=== PATIENT | male | born 1940 | race Caucasian/White ===

== ENCOUNTER 2024-01-26 12:42 | Inpatient (IN) | payer OTHER, MEDICARE ==
[~2024-01-26] VITALS: Ht 188 cm; Wt 77.3 kg
[2024-01-26] MEDS ORDERED: RA M500C PO (13:07)
[2024-01-26] MEDS ORDERED: LOVA20TA2 PO (13:07)
[2024-01-26] MEDS ORDERED: REDCAP4 PO (13:07)
[2024-01-26] MEDS ORDERED: OMEG12004 PO (13:07)
[2024-01-26] MEDS ORDERED: OCUVCAP PO (13:07)
[2024-01-26] MEDS ORDERED: OSTE1TAB2 PO (13:07)
[2024-01-26] MEDS ORDERED: HYDR12.55 PO (13:07)
[2024-01-26] MEDS ORDERED: LISI10TA22 PO (13:07)
[2024-01-26] MEDS ORDERED: CLOP75TA2 PO (13:07)
[2024-01-26] MEDS ORDERED: ISOVUE-370 76% 100ML VIAL As Ordered ONE (13:43)
[2024-01-26 14:02] LABS: BASO # 0.1 10^3/uL (0.0-0.2); BASO % 0.8 % (0.0-1.0); EOS % 0.1 % (0.0-3.0); HEMATOCRIT 43.8 % (42.0-52.0); LYMPH # 0.8 10^3/uL (1.5-5.0); LYMPH % 9.8 % (24.0-44.0); MEAN CORPUSCULAR HEMOGLOBIN 32.7 pg (27.0-33.0); MEAN CORPUSCULAR HGB CONC 34.2 g/dl (32.0-36.5); MEAN CORPUSCULAR VOLUME 95.4 fl (80.0-96.0); MONO # 0.5 10^3/uL (0.0-0.8); MONO % 6.5 % (2.0-8.0); NEUTROPHILS # 6.5 10^3/uL (1.5-8.5); NEUTROPHILS % 82.5 % (36.0-66.0); PLATELET COUNT, AUTOMATED 323 10^3/uL (150-450); RED BLOOD COUNT 4.59 10^6/uL (4.30-6.10); WHITE BLOOD COUNT 7.8 10^3/uL (4.0-10.0)
[2024-01-26] MEDS: LABETALOL 100MG/20ML VIAL IV STA (14:14)
[2024-01-26 14:25] LABS: INR 0.96; PARTIAL THROMBOPLASTIN TIME 27.9 SECONDS (24.8-34.2); PROTHROMBIN TIME 12.5 SECONDS (12.5-14.5)
[2024-01-26 14:30] LABS: ALBUMIN 3.9 G/DL (3.2-5.2); ALKALINE PHOSPHATASE 72 U/L (46-116); ALT/SGPT 24 U/L (7.0-40); AST/SGOT 27 U/L (<34); BILIRUBIN,DIRECT 0.2 MG/DL (<0.4); BILIRUBIN,TOTAL 0.6 MG/DL (0.3-1.2); BLOOD UREA NITROGEN 12 MG/DL (9-23); CALCIUM LEVEL 9.4 MG/DL (8.3-10.6); CARBON DIOXIDE LEVEL 26 MMOL/L (20-31); CHLORIDE LEVEL 99 MMOL/L (98-107); CK-MB VALUE MASS 1.9 NG/ML (<3.6); CREATININE FOR GFR 0.46 MG/DL (0.70-1.30); GLOMERULAR FILTRATION RATE > 60.0 (>35); GLUCOSE, FASTING 154 MG/DL (74-106); POTASSIUM SERUM 3.7 MMOL/L (3.5-5.1); SODIUM LEVEL 134 MMOL/L (136-145); TOTAL PROTEIN 7.4 G/DL (5.7-8.2)
[2024-01-26 14:32] LABS: FREE T4 1.15 NG/DL (0.89-1.76)
[2024-01-26 14:33] LABS: THYROID STIMULATING HORMONE 1.584 uIU/ML (0.55-4.78)
[2024-01-26 14:51] LABS: CPK CREATINE PHOSPHOKINASE 122 U/L (46-171); MB/CK RELATIVE INDEX 1.55 (< OR =4)
[2024-01-26] MEDS: ASPIRIN 81MG CHEW TABLET PO ONE (15:52)
[2024-01-26] MEDS ORDERED: ACETAMINOPHEN TAB 650MG DOSE (2X325MG) PO PRN (17:55)
[2024-01-26] MEDS: ATORVASTATIN 20 MG TAB PO ONE (18:25)
[2024-01-26] MEDS: CLOPIDOGREL 75 MG TAB PO ONE (18:25)
[2024-01-26] MEDS: LABETALOL 100MG/20ML VIAL IV PRN (18:40)
[2024-01-26] MEDS ORDERED: VITA-10 PO (19:12)
[2024-01-26] MEDS ORDERED: VITA100065 PO (19:12)
[2024-01-26] MEDS ORDERED: D 101000 PO (19:12)
[2024-01-26] MEDS ORDERED: HOME MED LIST COMPLETE! XX SCH (19:15)
[2024-01-26] MEDS: DOCUSATE SODIUM 100MG CAPSULE PO SCH (21:29)
[2024-01-26 22:23] VITALS: BP 210/92; TEMP 97.1; O2SAT 97
[2024-01-26 23:00] VITALS: O2SAT 96
[2024-01-26 23:44] VITALS: BP 222/98; TEMP 97.4; O2SAT 98
[2024-01-26] MEDS: PANTOPRAZOLE 40MG VIAL IV SCH (23:47)
[2024-01-26] MEDS: SUCRALFATE 1 GM TAB PO SCH (23:47)
[2024-01-27] VITALS (10 sets, daily range): BP systolic 142–222; BP diastolic 58–98; TEMP 97.4–97.7; O2SAT 94–99
[2024-01-27 00:15] LABS: HEMATOCRIT 45.6 % (42.0-52.0); HEMOGLOBIN 15.8 g/dl (13.5-17.5)
[2024-01-27] MEDS: hydrALAZINE 20MG/ML 1ML VIAL IV ONE (00:23)
[2024-01-27] MEDS: METOCLOPRAMIDE INJ 10MG/2ML VIAL IV ONE (04:18)
[2024-01-27 05:34] LABS: HEMATOCRIT 45.8 % (42.0-52.0); HEMOGLOBIN 15.8 g/dl (13.5-17.5)
[2024-01-27 05:59] LABS: ALKALINE PHOSPHATASE 76 U/L (46-116); ALT/SGPT 23 U/L (7.0-40); AST/SGOT 25 U/L (<34); BILIRUBIN,TOTAL 0.7 MG/DL (0.3-1.2); BLOOD UREA NITROGEN 13 MG/DL (9-23); CALCIUM LEVEL 9.7 MG/DL (8.3-10.6); CARBON DIOXIDE LEVEL 26 MMOL/L (20-31); CHLORIDE LEVEL 97 MMOL/L (98-107); CREATININE FOR GFR 0.43 MG/DL (0.70-1.30); GLOMERULAR FILTRATION RATE > 60.0 (>35); GLUCOSE, FASTING 122 MG/DL (74-106); MAGNESIUM LEVEL 2.2 MG/DL (1.8-2.4); POTASSIUM SERUM 3.6 MMOL/L (3.5-5.1); SODIUM LEVEL 133 MMOL/L (136-145); TOTAL PROTEIN 7.7 G/DL (5.7-8.2)
[2024-01-27] MEDS ORDERED: HEPARIN SOD (PORCINE) 5000UNITS/ML 1ML VIAL/SYRINGE IV PRN (16:50)
[2024-01-27] MEDS: HEPARIN DRIP 25,000 UNITS in IV 1 EA IV SCH (18:06)
== END 2024-01-27 20:13 | disposition short-term general hospital (02) | DRG 300 ==
LOC: M ED 12:42 → M ED INP 17:55 → M PCU 22:23
PROVIDERS: ADMIT Hospitalist; ATTEND Hospitalist
DX: I70.202 Unspecified atherosclerosis of native arteries of extremities, left leg (principal); I45.2 Bifascicular block; Z66 Do not resuscitate; R47.1 Dysarthria and anarthria; H53.2 Diplopia; I65.21 Occlusion and stenosis of right carotid artery; I16.0 Hypertensive urgency; I10 Essential (primary) hypertension; E78.5 Hyperlipidemia, unspecified; Z79.82 Long term (current) use of aspirin; Z79.899 Other long term (current) drug therapy; Z86.73 Personal history of transient ischemic attack (TIA), and cerebral infarction without residual deficits

== ENCOUNTER → 2024-03-11 | Outpatient (REF) | payer MEDICARE, OTHER ==
[~2024-03-11] MED LIST: CLOP75TA2 PO; D 101000 PO; HYDR12.55 PO; LISI10TA22 PO; LOVA20TA2 PO; OCUVCAP PO; OMEG12004 PO; OSTE1TAB2 PO; RA M500C PO; REDCAP4 PO; VITA-10 PO; VITA100065 PO
== END ==
LOC: SKLAB4 12:31
PROVIDERS: ATTEND Internal Medicine
DX: R09.02 Hypoxemia (principal)

== ENCOUNTER → 2024-03-17 | Outpatient (REF) | payer SELFPAY ==
[2024-03-17 15:39] LABS: BLOOD UREA NITROGEN 14 MG/DL (9-23); CALCIUM LEVEL 9.3 MG/DL (8.3-10.6); CARBON DIOXIDE LEVEL 29 MMOL/L (20-31); CHLORIDE LEVEL 101 MMOL/L (98-107); CREATININE FOR GFR 0.54 MG/DL (0.70-1.30); GLOMERULAR FILTRATION RATE > 60.0 (>35); GLUCOSE, FASTING 102 MG/DL (74-106); POTASSIUM SERUM 4.4 MMOL/L (3.5-5.1); SODIUM LEVEL 135 MMOL/L (136-145)
== END ==
LOC: SKLAB4 14:39
PROVIDERS: ATTEND Internal Medicine
DX: I10 Essential (primary) hypertension (principal)

== ENCOUNTER → 2024-03-29 | Outpatient (REF) | payer OTHER ==
[2024-03-29 11:15] LABS: BLOOD UREA NITROGEN 11 MG/DL (9-23); CALCIUM LEVEL 9.6 MG/DL (8.3-10.6); CARBON DIOXIDE LEVEL 30 MMOL/L (20-31); CHLORIDE LEVEL 98 MMOL/L (98-107); CREATININE FOR GFR 0.54 MG/DL (0.70-1.30); GLOMERULAR FILTRATION RATE > 60.0 (>35); GLUCOSE, FASTING 89 MG/DL (74-106); POTASSIUM SERUM 4.3 MMOL/L (3.5-5.1); SODIUM LEVEL 133 MMOL/L (136-145)
== END ==
LOC: SKLAB4 07:00
PROVIDERS: ATTEND Internal Medicine
DX: I10 Essential (primary) hypertension (principal)

== ENCOUNTER → 2024-04-14 | Outpatient (REF) ==
[2024-04-14 13:16] LABS: BLOOD UREA NITROGEN 18 MG/DL (9-23); CALCIUM LEVEL 9.2 MG/DL (8.3-10.6); CARBON DIOXIDE LEVEL 30 MMOL/L (20-31); CHLORIDE LEVEL 98 MMOL/L (98-107); GLOMERULAR FILTRATION RATE > 60.0 (>35); GLUCOSE, FASTING 91 MG/DL (74-106); POTASSIUM SERUM 4.4 MMOL/L (3.5-5.1); SODIUM LEVEL 136 MMOL/L (136-145)
== END ==
LOC: SKLAB4 08:39
PROVIDERS: ATTEND Internal Medicine
DX: I50.9 Heart failure, unspecified (principal)

== ENCOUNTER → 2024-05-03 | Outpatient (REF) ==
[2024-05-03 10:20] LABS: HEMATOCRIT 37.7 % (42.0-52.0); HEMOGLOBIN 12.2 g/dl (13.5-17.5); MEAN CORPUSCULAR HEMOGLOBIN 32.4 pg (27.0-33.0); MEAN CORPUSCULAR HGB CONC 32.4 g/dl (32.0-36.5); MEAN CORPUSCULAR VOLUME 100.3 fl (80.0-96.0); PLATELET COUNT, AUTOMATED 341 10^3/uL (150-450); RED BLOOD COUNT 3.76 10^6/uL (4.30-6.10); WHITE BLOOD COUNT 8.3 10^3/uL (4.0-10.0)
[2024-05-03 10:48] LABS: BLOOD UREA NITROGEN 25 MG/DL (9-23); CALCIUM LEVEL 9.6 MG/DL (8.3-10.6); CARBON DIOXIDE LEVEL 30 MMOL/L (20-31); CHLORIDE LEVEL 103 MMOL/L (98-107); CREATININE FOR GFR 0.79 MG/DL (0.70-1.30); GLOMERULAR FILTRATION RATE > 60.0 (>35); GLUCOSE, FASTING 87 MG/DL (74-106); POTASSIUM SERUM 4.3 MMOL/L (3.5-5.1); SODIUM LEVEL 137 MMOL/L (136-145)
== END ==
LOC: SKLAB4 08:45
PROVIDERS: ATTEND Internal Medicine
DX: I10 Essential (primary) hypertension (principal)

== ENCOUNTER → 2024-10-14 | Outpatient (CLI) | payer MEDICARE, OTHER | LOC: M ONCR 12:49 | PROVIDERS: ATTEND General Practice | DX: C44.42 Squamous cell carcinoma of skin of scalp and neck (principal); Z77.098 Contact with and (suspected) exposure to other hazardous, chiefly nonmedicinal, chemicals; Z79.02 Long term (current) use of antithrombotics/antiplatelets; Z79.899 Other long term (current) drug therapy ==

== ENCOUNTER → 2024-11-18 | Outpatient (RCR) | payer MEDICARE, OTHER | LOC: M ONCR 10-31 13:45 | PROVIDERS: ATTEND General Practice | DX: Z51.0 Encounter for antineoplastic radiation therapy (principal); C44.42 Squamous cell carcinoma of skin of scalp and neck ==

== ENCOUNTER 2024-11-22 13:17 | Outpatient (RCR) | payer MEDICARE, OTHER | END 2024-12-16 | LOC: M ONCR 13:17 | PROVIDERS: ATTEND General Practice | DX: Z51.0 Encounter for antineoplastic radiation therapy (principal); C44.42 Squamous cell carcinoma of skin of scalp and neck ==

== ENCOUNTER → 2024-12-20 | Outpatient (CLI) | payer MEDICARE | LOC: M ONCR 14:39 | PROVIDERS: ATTEND General Practice | DX: C44.42 Squamous cell carcinoma of skin of scalp and neck (principal); Z92.3 Personal history of irradiation ==

== ENCOUNTER 2025-01-06 13:47 | Outpatient (RCR) | payer MEDICARE | END 2025-01-16 | LOC: M ONCR 13:47 | PROVIDERS: ATTEND General Practice | DX: Z51.0 Encounter for antineoplastic radiation therapy (principal); C44.42 Squamous cell carcinoma of skin of scalp and neck ==

== ENCOUNTER → 2025-05-10 | Outpatient (CLI) | payer MEDICARE, OTHER | LOC: M EKG 13:43 | PROVIDERS: ATTEND Physician Assistant | DX: I63.9 Cerebral infarction, unspecified (principal) ==

== ENCOUNTER → 2025-06-02 | Outpatient (CLI) | payer OTHER, MEDICARE | LOC: M RAD 15:08 | PROVIDERS: ATTEND Physician Assistant | DX: I63.9 Cerebral infarction, unspecified (principal) ==

== ENCOUNTER → 2025-07-14 | Outpatient (CLI) | payer MEDICARE, OTHER ==
[2025-07-14 18:33] LABS: IRON (FE) 28.0 UG/DL (65-175); PERCENT SATURATION 9.4 % (19.7-50.0)
[2025-07-14 18:35] LABS: VITAMIN B12 LEVEL 569.0 PG/ML (211-911)
[2025-07-14 18:36] LABS: FREE T4 1.09 NG/DL (0.89-1.76)
== END ==
LOC: M WUC 15:55
PROVIDERS: ATTEND Physician Assistant
DX: L60.8 Other nail disorders (principal); D50.9 Iron deficiency anemia, unspecified